=== PATIENT | female | born 1935 | race Caucasian/White ===

== ENCOUNTER 2020-04-12 12:51 | Emergency (ER) | payer MEDICARE, OTHER ==
[~2020-04-12] VITALS: Ht 165.1 cm; Wt 90.7 kg
--- NOTE | 2020-04-12 13:09 | Emergency Department Note ---
History of Present Illnes History of Present Illness Chief Complaint: General Medicine Complaints History of Present Illness This is a 84 year old female Chief Complaint Comment Patient in from home with complaints of left hip and side pain after suffering a mechanical trip and fall over a cement parking block yesterday evening. Patient has an approximately 8cm skin tear to her left upper arm. Denies LOC and denies hitting her head. Patient was able to transfer out of her car without assistance. Historian: Patient Arrival Mode: Car Optical Laboratory Manager Required: No Onset (how long ago): day(s) Location: L hip Quality: Dull Radiation: Reports non-radiation Severity: mild Onset quality: sudden Duration (how long): day(s) (2) Timing of current episode: constant Progression: unchanged Chronicity: new Context: Denies recent illness, Denies recent surgery Relieving factors: none Exacerbating factors: none Associated symptoms: Reports denies other symptoms Treatments prior to arrival: none Past Medical/Family History Physician Review I have reviewed the patient's past medical and family history. Any updates have been documented here. Past Medical History Recent Fever: No Clinical Suspicion of Infectio: No New/Unexplained Change in Ment: No Past Medical History: Diabetes, Hypothyroidism, Hyperlipedemia Other Medical History: chronic knee infection Past Surgical History: Hysterectomy, Knee Replacement Review of Systems Review of Systems Constitutional: Reports no symptoms EENTM: Reports no symptoms Cardiovascular: Reports no symptoms Respiratory: Reports no symptoms Gastrointestinal: Reports no symptoms Genitourinary: Reports no symptoms Musculoskeletal: Reports as per HPI Integumentary: Reports no symptoms Neurological: Reports no symptoms Psychological: Reports no symptoms Endocrine: Reports no symptoms Hematological/Lymphatic: Reports no symptoms Physical Exam Related Data Allergies: Coded Allergies: No Known Allergies (Unverified , 04/12/20) Triage Vital Signs Vital Signs Date Time Temp Pulse Resp B/P (MAP) Pulse Ox O2 Delivery O2 Flow Rate FiO2 04/12/20 12:55 98.2 85 16 169/97 100 Room Air Vital signs reviewed: Yes Physical Exam CONSTITUTIONAL Constitutional: Present well-developed, Present well-nourished HENT HENT: Present normocephalic, Present atraumatic, Present oropharynx clear/moist, Present nose normal HENT L/R: Present left ext ear normal, Present right ext ear normal EYES Eyes: Reports PERRL, Reports conjunctivae normal NECK Neck: Present ROM normal PULMONARY Pulmonary: Present effort normal, Present breath sounds normal CARDIOVASCULAR Cardiovascular: Present regular rhythm, Present heart sounds normal, Present capillary refill normal, Present normal rate GASTROINTESTINAL Abdominal: Present soft, Present nontender, Present bowel sounds normal GENITOURINARY Genitourinary: Present exam deferred SKIN Skin: Present warm, Present dry, Present other (Skin tear L elbow) MUSCULOSKELETAL Musculoskeletal: Present ROM normal, Present other (All extremities neurovascularly intact); Absent deformity, Absent tenderness NEUROLOGICAL Neurological: Present alert, Present oriented x 3, Present no gross motor or sensory deficits PSYCHOLOGICAL Psychological: Present mood/affect normal, Present judgement normal Results Imaging Imaging results reviewed: Yes Assessment & Plan Medical Decision Making MDM 84 y.o F presents for fall yesterday. Exam shows skin tear to L elbow but otherwise unremarkable. Ct's, x-rays unremarkable. Will DC home. Reassessment Reassessment time: 13:09 Reassessment Well appearing, NAD Assessment & Plan Final Impression: (1) Fall Depart Disposition: HOME, SELF-CARE Last Vital Signs Date Time Temp Pulse Resp B/P (MAP) Pulse Ox O2 Delivery O2 Flow Rate FiO2 04/12/20 12:55 98.2 85 16 169/97 100 Room Air DILAN LERMA MD Apr 12, 2020 13:09
[2020-04-12] MEDS ORDERED: TETANUS/DIPHTHERIA TOX ADULT 0.5 ML SYR IM ONE (13:15)
[2020-04-12] MEDS ORDERED: FENTANYL CITRATE/PF 100MCG/2 ML INJ IV PRN (13:15)
--- NOTE | 2020-04-12 14:12 | Diagnostic Imaging Report ---
EXAMINATION: Head and cervical spine CT without contrast. HISTORY: 84-year-old female status post fall the day before, left-sided pain. COMPARISON: None. TECHNIQUE: Multidetector axial images were obtained without contrast from the foramen magnum to the vertex and through the cervical spine. Dose modulation, iterative reconstruction, and/or weight based adjustment of the mA/kV was utilized to reduce the radiation dose to as low as reasonably achievable. HEAD CT FINDINGS: Skull/scalp: No lytic or blastic lesions. No fractures. Parenchyma: Left inferomedial occipital lingula generous cortical and subcortical encephalomalacia, likely the sequela from remote infarct. Few scattered white matter hypodensities, most likely nonspecific chronic microvascular ischemic changes. Small chronic lacunar infarcts in the right external capsule and left superior frontal centrum semiovale. No mass, hemorrhage or CT evidence of acute vascular insult. Brain volume: Normal for age. Ventricles: No hydrocephalus or displacement. Arteries: No density suggestive of thrombus. Dural sinuses: No abnormal density. Extra-axial spaces: No abnormal density. Foramen magnum: No mass, Chiari malformation, or basilar invagination. Sella: No obvious mass. Paranasal/mastoid sinuses: Imaged portions unremarkable. CERVICAL SPINE CT FINDINGS: Alignment:Normal alignment and lordosis. Soft tissues: Normal. Vertebrae: Normal height and density. No acute fracture, infection or neoplasm. Degenerative changes: C1-C2: Normal C2-C3: Normal C3-C4: Normal C4-C5: Small disc osteophyte complex formation and uncovertebral arthrosis, no significant canal or foraminal stenoses. C5-C6: Disc osteophyte formation, bilateral uncovertebral and facet arthrosis. Mild right and moderate left foraminal C6-C7: Bilateral facet arthrosis without significant canal or foraminal stenosis. C7-T1: Normal IMPRESSION: Head CT: 1. No acute postraumatic intracranial hemorrhage. 2. Chronic left occipital infarct. 3. Mild chronic microvascular ischemic changes. Cervical spine CT: 1. No acute fractures or dislocations. 2. Chronic degenerative changes as described. Note: Acute post traumatic spinal cord, vascular or ligamentous injury cannot adequately be assessed with CT. Signed by: Dr. Dilma Baum M.D. on 04/12/2020 2:09 PM
--- NOTE | 2020-04-12 14:21 | Diagnostic Imaging Report ---
EXAM: CHEST SINGLE (PORTABLE) DATE: 04/12/2020 2:03 PM INDICATION: Fall COMPARISON: None FINDINGS: The trachea is midline. The lungs are symmetrically expanded without evidence for large focal consolidation, pneumothorax, or significant pleural effusion. The cardiomediastinal silhouette and pulmonary vasculature are within normal limits. Atherosclerotic calcifications noted within the thoracic aorta. No acute osseous abnormality is identified. The surrounding soft tissues are unremarkable. IMPRESSION: No acute cardiopulmonary process identified. Signed by: Dr. Harrison Beverly MD on 04/12/2020 2:18 PM
--- NOTE | 2020-04-12 14:24 | Diagnostic Imaging Report ---
EXAM: KNEE LEFT THREE VIEWS DATE: 04/12/2020 2:03 PM INDICATION: Fall COMPARISON: None FINDINGS: There are postsurgical changes from left knee arthroplasty. Hardware appears intact and in anatomic alignment. There is no evidence for acute fracture or dislocation. Atherosclerotic calcifications are noted. The surrounding soft tissues are otherwise unremarkable without evidence for radiopaque foreign body or significant joint effusion. IMPRESSION: Postsurgical changes from left knee arthroplasty. No acute radiographic abnormality identified. Signed by: Dr. Harrison Beverly MD on 04/12/2020 2:20 PM
--- NOTE | 2020-04-12 14:25 | Diagnostic Imaging Report ---
EXAM: ELBOW LEFT COMPLETE DATE: 04/12/2020 2:03 PM INDICATION: Fall COMPARISON: None FINDINGS: There is no evidence for acute fracture or dislocation. No focal lytic or blastic abnormalities identified. The surrounding soft tissues are unremarkable without evidence for radiopaque foreign body or significant joint effusion. IMPRESSION: No acute radiographic abnormality identified within the left elbow. Signed by: Dr. Harrison Beverly MD on 04/12/2020 2:22 PM
--- NOTE | 2020-04-12 14:30 | Diagnostic Imaging Report ---
EXAM: HIP LEFT 2-3 VW (+/- PELVIS) DATE: 04/12/2020 2:03 PM INDICATION: Fall COMPARISON: None FINDINGS: There is no evidence for acute fracture or dislocation. No focal lytic or blastic abnormality is identified. There are degenerative changes of the bilateral hips with moderate joint space narrowing, associated subchondral sclerosis, and osteophyte production. Degenerative changes also noted of the visualized lumbosacral spine and bilateral SI joints. The surrounding soft tissues are unremarkable without evidence for radiopaque foreign body. IMPRESSION: No acute radiographic abnormality identified within the pelvis or left hip. Degenerative changes as above. Signed by: Dr. Harrison Beverly MD on 04/12/2020 2:27 PM
--- OUTSIDE RECORDS SUMMARY | 2020-04-12 15:57 | XMS REPORT | Continuity of Care Document ---
Author Author [facility] t Organization [facility] Address [address] [place] [address] Phone Unavailable Care Team Providers Care Costing Analyst Name Role Phone Addis MCDONALD, Marielle PCP Viji De La Vega Attphys Unavailable Payers Payer Name Policy Type Policy Number Effective Date Expiration Date S ource Problems This patient has no known problems. Allergies, Adverse Reactions, Alerts Allergy Name Allergy Type Status Severity Reaction(s) Onset Date Inacti ve Date Treating Clinician Comments Source COZAAR DA Active U 2008-10-16 00:00:00 [facility] NORVASC DA Active U 2008-10-16 00:00:00 [facility] No Known Contrast Allergies DA Active U 2008-10-16 00:00: 00 [facility] No Known Food Allergies DA Active U 2008-10-16 00:00:00 [facility] No Known Other Allergies DA Active U 2008-10-16 00:00:00 [facility] VASOTEC DA Active U 2008-10-16 00:00:00 [facility] Social History Social Habit Start Date Stop Date Quantity Comments Source Sex Assigned At Uli Roque Medications This patient has no known medications. Procedures This patient has no known procedures. Plan of Care Planned Activity Planned Date Details Comments Source Future Scheduled Test 2020-01-27 00:00:00 INFLUENZA VACCINE [code = INFLUENZA VACCINE] [facility] Future Scheduled Test 2000 00:00:00 65+ PNEUMOCOCCAL V ACCINE (1 of 1 - PPSV23) [code = 65+ PNEUMOCOCCAL VACCINE (1 of 1 - PPSV23)] [facility] Future Scheduled Test 1985 00:00:00 SHINGLES VACCINES (#1) [code = SHINGLES VACCINES (#1)] [facility] Results Test Description Test Time Test Comments Results Result Comments Source HIP LEFT 2-3 VW (+/- PELVIS) 2020-04-12 14:23:00 [facility] 1935 Sex: F [place] [address] Patient Name: CHARITY SUAREZ MR #: [id number] : 1935 Age/Sex: 84/F Req #: [id number] Adm Physician: Ordered by: Dilan De La Vega MD Report #: [id number] Location: ER Room/Bed: Procedure: [id number] DX/HIP LEFT 2-3 VW (+/- PELVIS) Exam Date: Exam Time: REPORT STATUS: Signed EXAM: HIP LEFT 2-3 VW (+/- PELVIS) DATE: 04/12/2020 2:03 PM INDICATION: Fall COMPARISON: None FINDINGS: There is no evidence for acute fracture or dislocation. No focal lytic or blastic abnormality is identified. There are degenerative changes of the bilateral hips with moderate joint space narrowing, associated subchondral sclerosis, and osteophyte production. Degenerative changes also noted of the visualized lumbosacral spine and bilateral SI joints. The surrounding soft tissues are unremarkable without evidence for radiopaque foreign body. IMPRESSION: No acute radiographic abnormality identified within the pelvis or left hip. Degenerative changes as above. Signed by: Dr. Harrison Beverly MD on 04/12/2020 2:27 PM Dictated By: HARRISON BEVERLY MD 26 Transcribed By: JANICE on 04/12/201426 COPY TO: DILAN DE LA VEGA MD ELBOW LEFT COMPLETE 2020-04-12 14:21:00 [facility] : 1935 Sex: F [place] [address] Patient Name: CHARITY SUAREZ MR #: [id number] : 1935 Age/Sex: 84/F Req #: [id number] [facility] Physician: Ordered by: Dilan De La Vega MD Report #: [id number] Location: Room/Bed: Procedure: [id number] DX/ELBOW LEFT COMPLETE Exam Date: 04/12/20 Exam Time: 1403 REPORT STATUS: Signed EXAM: ELBOW LEFT COMPLETE DATE: 04/12/2020 2:03 PM INDICATION: Fall COMPARISON: None FINDINGS: There is no evidence for acute fracture or dislocation. No focal lytic or blastic abnormalities identified. The surrounding soft tissues are unremarkable without evidence for radiopaque foreign body or significant joint effusion. IMPRESSION: No acute radiographic abnormality identified within the left elbow. Signed by: Dr. Harrison Beverly MD on 04/12/2020 2:22 PM Dictated By: HARRISON BEVERLY MD 21 Transcribed By: JANICE on 04/12/201421 COPY TO: DILAN DE LA VEGA MD KNEE LEFT THREE VIEWS 2020-04-12 14:19:00 [facility] : 1935 Sex: F [place] [address] Patient Name: CHARITY SUAREZ MR #: [id number] : 1935 Age/Sex: 84/F Req #: [id number] Adm Physician: Ordered by: Dilan De La Vega MD Report #: [id number] Location: Room/Bed: Procedure: [id number] DX/KNEE LEFT THREE VIEWS Exam Date: 04/12/20 Exam Time: 1403 REPORT STATUS: Signed EXAM: KNEE LEFT THREE VIEWS DATE: 04/12/2020 2:03 PM INDICATION: Fall COMPARISON: None FINDINGS: There are postsurgical changes from left knee arthroplasty. Hardware appears intact and in anatomic alignment. There is no evidence for acute fracture or dislocation. Atherosclerotic calcifications are noted. The surrounding soft tissues are otherwise unremarkable without evidence for radiopaque foreign body or significant joint effusion. IMPRESSION: Postsurgical changes from left knee arthroplasty. No acute radiographic abnormality identified. Signed by: Dr. Harrison Beverly MD on 04/12/2020 2:20 PM Dictated By: HARRISON BEVERLY MD 19 Transcribed By: JANICE on 04/12/201419 COPY TO: DILAN DE LA VEGA MD CHEST SINGLE (PORTABLE) 2020-04-12 14:17:00 [facility] : 1935 Sex: F [place] [address] Patient Name: CHARITY SUAREZ MR #: [id number] : 1935 Age/Sex: 84/F Req #: [id number] [facility] Physician: Ordered by: Dilan De La Vega MD Report #: [id number] Location: ER Room/Bed: Procedure: [id number] DX/CHEST SINGLE (PORTABLE) Exam Date: 04/12/20 Exam Time: 1403 REPORT STATUS: Signed EXAM: CHEST SINGLE (PORTABLE) DATE: 04/12/2020 2:03 PM INDICATION: Fall COMPARISON: None FINDINGS: The trachea is midline. The lungs are symmetrically expanded without evidence for large focal consolidation, pneumothorax, or significant pleural effusion. The cardiomediastinal silhouette and pulmonary vasculature are within normal limits. Atherosclerotic calcifications noted within the thoracic aorta. No acute osseous abnormality is identified. The surrounding soft tissues are unremarkable. IMPRESSION: No acute cardiopulmonary process identified. Signed by: Dr. Harrison Beverly MD on 04/12/2020 2:18 PM Dictated By: HARRISON BEVERLY MD 17 Transcribed By: JANICE on 04/12/201417 COPY TO: DILAN DE LA VEGA MD CT CERVICAL SPINE WO 2020-04-12 14:01:00 [facility] : 1935 Sex: F [facility] [address] [place] [address] Patient Name: CHARITY SUAREZ MR #: [id number] : 1935 Age/Sex: 84/F Req #: [id number] Adm Physician: Ordered by: Dilan De La Vega MD Report #: [id number] Location: ER Room/Bed: Procedure: [id number] CT/CT CERVICAL SPINE WO Exam Date: 04/12/20 Exam Time: 1326 REPORT STATUS: Signed EXAMINATION: Head and cervical spine CT without contrast. HISTORY: 84-year-old female status post fall the day before, left-sided pain. COMPARISON: None. TECHNIQUE: Multidetector axial images were obtained without contrast from the foramen magnum to the vertex and through the cervical spine. Dose modulation, iterative reconstruction, and/or weight based adjustment of the mA/kV was utilized to reduce the radiation dose to as low as reasonably achievable. HEAD CT FINDINGS: Skull/scalp: No lytic or blastic lesions. No fractures. Parenchyma: Left inferomedial occipital lingula generous cortical and subcortical en cephalomalacia, likely the sequela from remote infarct. Few scattered white matter hypodensities, most likely nonspecific chronic microvascular ischemic changes. Small chronic lacunar infarcts in the right external capsule and left superior frontal centrum semiovale. No mass, hemorrhage or CT evidence of acute vascular insult. Brain volume: Normal for age. Ventricles: No hydrocephalus or displacement. Arteries: No density suggestive of thrombus. Dural sinuses: No abnormal density. Extra-axial spaces: No abnormal density. Foramen magnum: No mass, Chiari malformation, or basilar invagination. Sella: No obvious mass. Paranasal/mastoid sinuses: Imaged portions unremarkable. CERVICAL SPINE CT FINDINGS: Alignment:Normal alignment and lordosis. Soft tissues: Normal. Vertebrae: Normal height and density. No acute fracture, infection or neoplasm. Degenerative changes: C1-C2: Normal C2-C3: Normal C3-C4: Normal C4-C5: Small disc osteophyte complex formation and uncovertebral arthrosis, no significant canal or foraminal stenoses. C5-C6: Disc osteophyte formation, bilateral uncovertebral and facet arthrosis. Mild right and moderate left foraminal C6-C7: Bilateral facet arthrosis without significant canal or foraminal stenosis. C7-T1: Normal IMPRESSION: Head CT: 1. No acute postraumatic intracranial hemorrhage. 2. Chronic left occipital infarct. 3. Mild chronic microvascular ischemic changes. Cervical spine CT: 1. No acute fractures or dislocations. 2. Chronic degenerative changes as described. Note: Acute post traumatic spinal cord, vascular or ligamentous injury cannot adequately be assessed with CT. Signed by: Dr. Libia Baum M.D. on 04/12/2020 2:09 PM Dictated By: LIBIA BAUM MD 08 Transcribed By: JANICE on 04/12/201408 COPY TO: DILAN DE LA VEGA MD CT BRAIN WO 2020-04-12 14:01:00 [facility] : 1935 Sex: F [place] [address] Patient Name: CHARITY SUAREZ MR #: [id number] : 1935 Age/Sex: 84/F Req #: [id number] [facility] Physician: Ordered by: Dilan De La Vega MD Report #: [id number] Location: Room/Bed: Procedure: [id number] CT/CT BRAIN WO Exam Date: 04/12/20 Exam Time: 1326 REPORT STATUS: Signed EXAMINATION: Head and cervical spine CT without contrast. HISTORY: 84-year-old female status post fall the day before, left-sided pain. COMPARISON: None. TECHNIQUE: Multidetector axial images were obtained without contrast from the foramen magnum to the vertex and through the cervical spine. Dose modulation, iterative reconstruction, and/or weight based adjustment of the mA/kV was utilized to reduce the radiation dose to as low as reasonably achievable. HEAD CT FINDINGS: Skull/scalp: No lytic or blastic lesions. No fractures. Parenchyma: Left inferomedial occipital lingula generous cortical and subcortical encephaloma lacia, likely the sequela from remote infarct. Few scattered white matter hypodensities, most likely nonspecific chronic microvascular ischemic changes. Small chronic lacunar infarcts in the right external capsule and left superior frontal centrum semiovale. No mass, hemorrhage or CT evidence of acute vascular insult. Brain volume: Normal for age. Ventricles: No hydrocephalus or displacement. Arteries: No density suggestive of thrombus. Dural sinuses: No abnormal density. Extra-axial spaces: No abnormal density. Foramen magnum: No mass, Chiari malformation, or basilar invagination. Sella: No obvious mass. Paranasal/mastoid sinuses: Imaged portions unremarkable. CERVICAL SPINE CT FINDINGS: Alignment:Normal alignment and lordosis. Soft tissues: Normal. Vertebrae: Normal height and density. No acute fracture, infection or neoplasm. Degenerative changes: C1-C2: Normal C2-C3: Normal C3-C4: Normal C4-C5: Small disc osteophyte complex formation and uncovertebral arthrosis, no significant canal or foraminal stenoses. C5-C6: Disc osteophyte formation, bilateral uncovertebral and facet arthrosis. Mild right and moderate left foraminal C6-C7: Bilateral facet arthrosis without significant canal or foraminal stenosis. C7-T1: Normal IMPRESSION: Head CT: 1. No acute postraumatic intracranial hemorrhage. 2. Chronic left occipital infarct. 3. Mild chronic microvascular ischemic changes. Cervical spine CT: 1. No acute fractures or dislocations. 2. Chronic degenerative changes as described. Note: Acute post traumatic spinal cord, vascular or ligamentous injury cannot adequately be assessed with CT. Signed by: Dr. Libia Baum M.D. on 04/12/2020 2:09 PM Dictated By: LIBIA BAUM MD 140 Transcribed By: JANICE on 04/12/201408 COPY TO: DILAN DE LA VEGA MD
--- OUTSIDE RECORDS SUMMARY | 2020-04-12 15:57 | XMS REPORT | Clinical Summary ---
Author Author [facility] Organization [facility] Address Unknown Phone Unavailable Care Team Providers Care Monkey Breeder Name Role Phone Marielle Mancini MD PCP Allergies Not on File Medications Not on file Active Problems Not on file Social History Date Tobacco Use Types Packs/Day Years Used Never Assessed Sex Assigned at Date Recorded Not on file Last Filed Vital Signs Not on file Plan of Treatment Health Maintenance Due Date Last Done Comments SHINGLES VACCINES (#1) 1985 65+ PNEUMOCOCCAL VACCINE 2000 (1 of 1 - PPSV23) INFLUENZA VACCINE 01/27/2020 Results Not on fileafter 04/12/2019 Insurance Type Payer Benefit Subscriber ID Effective Phone Address Plan / Dates Group Medicare MEDICARE MEDICARE [id number] 2000- [place], PART A AND Present [place] B HMO/PPO [facility] [id number] 2016-P THCARE resent CHOICE/CHO ICE + Advance Directives For more information, please contact: [phone] Patient Chief Ii Dispatcher Explanation Type Date Recorded Advance Directives, Living Will and Medical Power of Tool And Die Designer
== END 2020-04-12 15:07 | disposition home or self-care (01) ==
LOC: ER 13:20
DX: M25.552 Pain in left hip (principal); S41.112A Laceration without foreign body of left upper arm, initial encounter; W01.0XXA Fall on same level from slipping, tripping and stumbling without subsequent striking against object, initial encounter; Y93.01 Activity, walking, marching and hiking; Y92.89 Other specified places as the place of occurrence of the external cause; E11.9 Type 2 diabetes mellitus without complications; E78.5 Hyperlipidemia, unspecified; E03.9 Hypothyroidism, unspecified
CPT/HCPCS: 70450; 71045; 72125; 99284